=== PATIENT | female | born 1955 | race Caucasian/White ===

== ENCOUNTER 2019-01-10 14:16 | Inpatient (IN) | payer OTHER ==
[~2019-01-10] VITALS: Ht 165.1 cm; Wt 100.0 kg
[2019-01-10] MEDS ORDERED: SODIUM CHLORIDE 0.9% 1L BAG IV* STA (14:29)
--- NOTE | 2019-01-10 15:14 | ERD ---
ER Documentation Chief Complaint Chief Complaint pt was found in back of trailer. aloc. skin is warm to touch HPI This is a 63-year-old female with a past medical history of hypertension, diabetes, COPD who is presenting with fever, cough, shortness of breath and altered mental status. The patient reports several days of feeling generally unwell. She endorses a congested nonproductive cough with increasing shortness of breath. She has chest tightness but denies chest pain or pleuritic pain. The patient has remained in her very hot trailer for several days. The patient was found by paramedics in the trailer very lethargic. The patient was very warm to touch prior to arrival. The patient was found to be febrile and tac hycardic in the emergency department. She is also hypoxic to the high 80s. She is currently alert, but oriented x2. She knows her name and the year, but she thought did not realize that she was in [place]. The patient does not know how she got to this town. She does not endorse any alleviating or exacerbating factors. The patient has had no headache or vision changes. The patient does not endorse neck pain or stiffness. She does not report back pain. The patient denies lightheadedness or dizziness. The patient denies nausea or vomiting. The patient denies abdominal pain. The patient denies changes to bowel movements or urination. The patient has had no focal deficits. The patient has had no weakness or numbness or tingling to the face or extremities. ROS All systems reviewed and are negative except as per history of present illness. Medications Home Meds Reported Medications Cyclobenzaprine Hcl* (Cyclobenzaprine Hcl*) 10 Mg Tablet, 10 MG PO Q8, #60 TAB 01/10/19 Morphine Sulfate* (Ms Contin*) 15 Mg Tablet.sa, 15 MG PO Q12, TAB 01/10/19 Doxepin Hcl* (Doxepin Hcl*) 25 Mg Capsule, 25 MG PO HS, CAP 01/10/19 Allergies Allergies: Coded Allergies: Penicillins (Unverified Allergy, Unknown, 01/10/19) doxycycline (Unverified Allergy, Unknown, 01/10/19) erythromycin base (Unverified Allergy, Unknown, 01/10/19) PMhx/Soc Medical and Surgical Hx: Unable to obtain History of Surgery: Yes (Cholecystectomy, back surgery, stomach surgery) Anesthesia Reaction: No Hx Neurological Disorder: No Hx Respiratory Disorders: Yes (COPD) Hx Cardiac Disorders: Yes (Hypertension, diabetes) Hx Psychiatric Problems: No Hx Miscellaneous Medical Probl: No Hx Alcohol Use: No Hx Substance Use: No Hx Tobacco Use: No FmHx Family History: diabetes Physical Exam Vitals Vital Signs Date Temp Pulse Resp B/P (MAP) Pulse Ox O2 O2 Flow FiO2 Time Delivery Rate 01/10/19 109 18 96 Nasal 4.0 16:21 Cannula 01/10/19 111 16 152/68 96 Nasal 4.0 16:12 (96) Cannula 01/10/19 101.2 15:45 01/10/19 111 18 161/79 98 Nasal 4.0 15:30 (106) Cannula 01/10/19 Nasal 4 14:35 Cannula 01/10/19 101.2 122 20 150/73 88 14:19 (98) Physical Exam Const: No apparent distress, well-developed, well-nourished Head: Normocephalic, Atraumatic Eyes: Normal Conjunctiva. Extraocular movements intact. Pupils equal, round and reactive to light ENT: Normal External Ears, Nose and Mouth. Neck: Full range of motion. No meningismus. Resp: Mild increased work of breathing, hypoxia, diffuse end expiratory w heezes and coarse breath sounds bilaterally. Cardio: Regular rhythm. Tachycardia. No murmurs, rubs or gallops Abd: Soft, non tender, non distended. Normal bowel sounds Skin: No petechiae or rashes. Very warm to touch. Back: No midline tenderness. No CVA tenderness Ext: No cyanosis, or edema Neur: Awake and alert, oriented 2 to person and time. Cranial nerves intact. No facial droop. Normal strength, sensation and coordination. Result Diagram: 01/10/19 1434 01/10/19 1434 Results 24 hrs Laboratory Tests Test 01/10/19 14:30 01/10/19 14:34 01/10/19 15:16 01/10/19 16:47 POC Venous 1.6 mmol/L Lactate White Blood 12.0 10^3/ul Count Red Blood Count 5.11 10^6/ul Hemoglobin 14.9 g/dl Hematocrit 44.4 % Mean Corpuscular 86.9 fl Volume Mean Corpuscular 29.2 pg Hemoglobin Mean Corpuscular 33.6 g/dl Hemoglobin Suzan nt Red Cell 13.3 % Distribution Width Platelet Count 192 10^3/UL Mean Platelet 9.8 fl Volume Immature 0.300 % Granulocytes % Neutrophils % 64.1 % Lymphocytes % 26.7 % Monocytes % 6.9 % Eosinophils % 1.4 % Basophils % 0.6 % Nucleated Red 0.0 /100WBC Blood Cells % Immature 0.030 10^3/ul Granulocytes # Neutrophils # 7.7 10^3/ul Lymphocytes # 3.2 10^3/ul Monocytes # 0.8 10^3/ul Eosinophils # 0.2 10^3/ul Basophils # 0.1 10^3/ul Nucleated Red 0.0 10^3/ul Blood Cells # Prothrombin Time 15.0 Sec Prothrombin Time 1.2 Ratio INR 1.17 International Normalized Ratio Activated 28.5 Sec Partial Thrombop last Time Sodium Level 147 mmol/L Potassium Level 2.9 mmol/L Chloride Level 116 mmol/L Carbon Dioxide 15 mmol/L Level Anion Gap 16 Blood Urea 24 mg/dl Nitrogen Creatinine 3.13 mg/dl Est Glomerular 15 mL/min Filtrat Rate mL/min Glucose Level 142 mg/dl Calcium Level 9.4 mg/dl Total Bilirubin 0.6 mg/dl Direct Bilirubin 0.00 mg/dl Indirect 0.6 mg/dl Bilirubin Aspartate Amino 37 IU/L Transf (AST/SGOT ) Alanine 8 IU/L Aminotransferase (ALT/SGPT) Alkaline 90 IU/L Phosphatase Creatine Kinase 534 IU/L Troponin I < 0.012 ng/ml Total Protein 8.7 g/dl Albumin 4.4 g/dl Globulin 4.30 g/dl Albumin/Globulin 1.02 Ratio Ethyl Alcohol < 10.0 mg/dl Level Blood Gas Blood arterial Specimen Source Arterial Blood 01/10/2019 5:18:4 Date Drawn 8 PM Arterial Blood 7.250 pH (Temp corrected) Arterial Blood 36.4 mmhg pCO2 (Temp correct) Arterial Blood 69.4 mmHG pO2 (Temp corrected) Arterial Blood 15.6 mmol/L HCO3 Arterial Blood -10.7 mmol/L Base Excess Arterial Blood 91.8 mmHG Oxygen Saturatio n Terry Test ACCEPTAB Arterial Blood Left Radial Gas Puncture Site Arterial 0.3 % Blood Carboxyhem oglobin Arterial Blood 0.3 % Methemoglobin Blood Gas A-a O2 36.7 mmHg Differential Oxyhemoglobin 91.2 % Percent Blood Gas 37.0 C Temperature Blood Gas ROOM AIR Modality FiO2 21.0 % Blood Gas DR. SAENZ Critical Value Read Back Blood Gas Raven Notified Whom Blood Gas 01/10/2019 5:41:2 Notified Time 4 PM Lactic Acid 0.9 mmol/L Level Current Medications Medications Dose Sig/Betty Start Time Status Last (Trade) Ordered Route PRN Stop Time Admin Dose Reason Admin Sodium 1,710 ml BOLUS OVER 2 01/10/19 DC 01/10/19 Chloride HOURS STAT 14:29 14:34 (NS) IV* 01/10/19 14:32 Ipratropium 1.5 mg ONCE STAT 01/10/19 DC 01/10/19 [place] INH 15:16 16:20 (Atrovent 01/10/19 15:20 0.02% (Neb)) Albuterol 15 mg ONCE STAT 01/10/19 DC 01/10/19 (Proventil INH 15:16 16:20 0.5% (Neb)) 01/10/19 15:20 125 mg ONCE STAT 01/10/19 DC 01/10/19 Methylprednis IV 15:16 15:32 olone Sodium 01/10/19 15:20 Succinate (Solu-Medrol) Ceftriaxone 50 ml @ ONCE STAT 01/10/19 DC 01/10/19 Sodium 100 mls/hr IVPB 15:16 15:33 01/10/19 15:45 Azithromycin 250 ml @ ONCE STAT 01/10/19 DC 250 mls/hr IV 15:16 01/10/19 16:37 650 mg ONCE ONCE 01/10/19 DC 01/10/19 Acetaminophen PO 15:30 15:45 (Tylenol 01/10/19 15:31 Tab) Ketorolac 15 mg ONCE STAT 01/10/19 DC 01/10/19 Tromethamine IV 15:16 15:32 (Toradol) 01/10/19 15:20 Potassium 50 ml @ 50 Q1H IVPB 01/10/19 01/10/19 Chloride mls/hr 15:30 17:41 01/10/19 18:29 Potassium 40 meq ONCE STAT 01/10/19 DC 01/10/19 Chloride PO 15:16 15:45 (Klor-Con 20) 01/10/19 15:20 Magnesium 50 ml @ 25 ONCE ONCE 01/10/19 DC 01/10/19 Sulfate mls/hr IVPB 15:30 16:09 01/10/19 17:29 150 ml @ ONCE ONCE 01/10/19 01/10/19 Levofloxacin/ 100 mls/hr IVPB 17:00 17:44 Dextrose 01/10/19 18:29 Ondansetron 4 mg ER BRIDGE 01/10/19 HCl (Zofran PRN IV 17:30 Inj) NAUSEA/VOMITI 01/11/19 17:29 NG 650 mg ER BRIDGE 01/10/19 Acetaminophen PRN PO 17:30 (Tylenol .MILD PAIN 01/11/19 17:29 Tab) 1-3 OR TEMP Procedures/MDM MDM The patient's presentation warrants further investigation. Previous medical records, if available, were reviewed. LABS The patient's laboratory testing was obtained and reviewed. No emergent treatment was required unless described below. CBC: Leukocytosis without shift. No E/o anemia or thrombocytopenia Chemistry: Hypokalemia requiring treatment. Elevated BUN and creatinine, concerning for acute renal failure. Anion gap metabolic acidosis evident. No E/o liver disease or diabetic ketoacidosis PT/INR: No E/o significant coagulopathy Lactate: No E/o severe sepsis Troponin: No E/o acute ischemia CK: Elevated, with the potential of mild rhabdomyolysis Urine: Pending Tox: No E/o alcohol abuse. UDS pending ABG: Metabolic acidosis with hypoxemia. EKG EKG read by me: Rate/Rhythm: Sinus tachycardia at 107 bpm Intervals: Normal [place]: Normal Impression: No evidence of acute ischemia. Sinus tachycardia. IMAGING Imaging and Radiology interpretation reviewed. CXR FINDINGS: The cardiomediastinal silhouette demonstrates enlargement of the card iac silhouette. No focal consolidation is seen. No pleural effusion is seen. No definite pneumothorax is seen. No acute osseous abnormality. Cervical spinal hardware noted. IMPRESSION: No radiographic evidence of an acute cardiopulmonary process. Cardiomegaly. Electronically viewed and signed by Carlton Craft Physician on 01/10/2019 15:30 TREATMENT/DISPOSITION The patient presents with fever, tachycardia, hypoxia and mild respiratory distress. The patient does have symptoms concerning for a COPD exacerbation. The patient was treated with nebulized albuterol ipratropium in addition to IV Solu-Medrol and magnesium. The patient does meet criteria for a systemic inflammatory response syndrome, and a sepsis work-up was completed. While I do not see evidence of a focal consolidation, and atypical pneumonia is a possibility. I did opt to treat the patient with Levaquin for the possibility of a pulmonary infection. The patient's lactic acidosis was unremarkable, but there is evidence of acute renal failure. The patient meets criteria for severe sepsis. The patient's ABG does reveal a metabolic acidosis. This will require further assessment in the hospital. Hypoxemia was also evident. This was off any oxygen. The patient was put on oxygen via nasal cannula with significant improvement of her oxygenation. The patient is hypokalemic which will require treatment. I do not feel that this is the etiology of her symptoms today. The patient will require nephrology consultation in the hospital for her renal insufficiency versus renal failure. The patient does have an anion gap metabolic acidosis, which will be managed with IV fluids in the emergency department. Given that the patient's downtime was not entirely known, I did opt to complete a total CK, which was slightly elevated. She is not quite at the level of rhabdomyolysis, but this should be monitored closely given her renal failure. This too was treated with IV fluids in the emergency department. Patient does not have any focal deficits. She is confused, but she is not dysarthric or aphasic. I have very low suspicion for cerebral ischemia. I do not suspect intracranial hemorrhage. I do not feel that advanced imaging is required at this time. SEPSIS NOTE SIRS Criteria: Fever, tachycardia, leukocytosis Infectious source: Pulmonary End organ damage indicated by: Cr > 2.0 SEPSIS MANAGEMENT Time to recognize sepsis: 1429 Time to recognize severe sepsis: 1445 Time to recognize septic shock: No septic shock at this time. 3 HOUR BUNDLE Blood cultures x 2 before abx: Yes 30 ml/kg NS bolus completed Initial lactate 1.6 Repeat lactate 0.9 SEPTIC SHOCK ASSESSMENT: NO lactic acid > 4.0 NO persistent hypotension (SBP < 90 or 40 mmHg drop, MAP < 65) despite 30 L/kg IV fluid bolus CRITICAL CARE Critical care time 35 minutes Emergent fluid management while maintaining close respiratory support. Provision of immediate and broad-spectrum antibiotic therapy. Simultaneous assessment for possible sources in order to direct targeted therapy. Consideration for invasive and chemical support to prevent cardiopulmonary collapse. Critical care time is independent of procedures performed. ADMISSION The patient will be admitted to [facility] in accordance with the patient's i nsurance. The patient was accepted by Dr. Casas to telemetry. Disclaimer: Inadvertent spelling and grammatical errors are likely due to EHR/dictation software use and do not reflect on the overall quality of patient care. Note that the electronic time recorded on this note does not necessarily reflect the actual time of the patient encounter. Departure Diagnosis: Primary Impression: Severe sepsis Additional Impressions: COPD exacerbation Fever Fever type: unspecified Qualified Codes: R50.9 - Fever, unspecified Tachycardia Leukocytosis Leukocytosis type: unspecified Qualified Codes: D72.829 - Elevated white blood cell count, unspecified Hypoxia Metabolic acidosis Hypokalemia Acute renal failure Acute renal failure type: unspecified Qualified Codes: N17.9 - Acute kidney failure, unspecified Elevated CK Altered mental status Altered mental status type: disorientation Qualified Codes: R41.0 - Disorientation, unspecified Condition: Serious EDA SAENZ MD Jan 10, 2019 15:14
[2019-01-10] MEDS ORDERED: AZITHROMYCIN 500MG/NS (PMX) 250 ML IV STA (15:16)
[2019-01-10] MEDS ORDERED: IPRATROPIUM (NEB) 0.5 MG/2.5 ML AMP INH STA (15:16)
[2019-01-10] MEDS ORDERED: METHYLPREDNISOLONE 125 MG INJ IV STA (15:16)
[2019-01-10] MEDS ORDERED: KETOROLAC 15 MG INJ IV STA (15:16)
[2019-01-10] MEDS ORDERED: CEFTRIAXONE 1 GM/50 ML (PMX) 50 ML IVPB STA (15:16)
[2019-01-10] MEDS ORDERED: ALBUTEROL 0.5% (NEB) 2.5 MG/0.5 ML AMP INH STA (15:16)
[2019-01-10] MEDS ORDERED: MAGNESIUM SULFATE 2 GM/50 ML 50 ML IVPB ONE (15:30)
[2019-01-10] MEDS: POTASSIUM CHLORIDE 50 ML IVPB SCH ×3 (15:30→19:39)
[2019-01-10] MEDS: ACETAMINOPHEN 325 MG TAB PO ONE ×3 (15:32→15:45)
[2019-01-10] MEDS: POTASSIUM CHLORIDE (SR) 20 MEQ TAB PO STA ×3 (15:33→15:45)
[2019-01-10] MEDS ORDERED: DOXE25CA2 PO (15:57)
[2019-01-10] MEDS ORDERED: MORP15TA92 PO (15:57)
[2019-01-10] MEDS ORDERED: CYCL10TA7 PO (15:58)
[2019-01-10] MEDS ORDERED: LEVOFLOXACIN 750MG/D5W (PMX) 150 ML IVPB ONE (17:00)
[2019-01-10] MEDS ORDERED: ACETAMINOPHEN 325 MG TAB PO PRN (17:30)
[2019-01-10] MEDS ORDERED: ONDANSETRON 4 MG INJ IV PRN (17:30)
[2019-01-10 19:00] VITALS: BP 129/84; PULSE 104; RESP 17
[2019-01-10 20:00] VITALS: Ht 165.1 cm; Wt 100.0 kg
[2019-01-10] MEDS ORDERED: morphine (ER) 15 MG TAB PO PRN ×2 (22:00→22:30)
[2019-01-10] MEDS ORDERED: DEXTROSE 50% 50 ML SYRINGE IV PRN ×2 (22:30)
[2019-01-10] MEDS ORDERED: VERAPAMIL (SR) 240 MG TAB PO SCH (22:30)
[2019-01-10] MEDS ORDERED: GLUCOSE GEL 15 GRAM TUBE PO PRN ×2 (22:30)
[2019-01-10] MEDS ORDERED: GLUCAGON 1 MG INJ IM PRN (22:30)
[2019-01-10] MEDS ORDERED: GLUCOSE GEL 15 GRAM TUBE BUCCAL PRN (22:30)
[2019-01-10] MEDS: CYCLOBENZAPRINE 10 MG TAB PO SCH (22:33)
[2019-01-10] MEDS: LORAZEPAM 0.5 MG TAB PO SCH (23:12)
[2019-01-10] MEDS: VERAPAMIL (SR) 120 MG TAB PO SCH (23:13)
[2019-01-11] MEDS: NS + KCL 20 MEQ 1,000 ML IV SCH ×2 (00:17→11:28)
[2019-01-11 00:19] VITALS: BP 126/79; PULSE 98; RESP 17
[2019-01-11] MEDS: ALBUTEROL/IPRATROPIUM (NEB) 3 ML AMP HHN SCH ×6 (01:35→20:14)
[2019-01-11 04:06] VITALS: BP 142/65; PULSE 89; RESP 17
[2019-01-11] MEDS: CYCLOBENZAPRINE 10 MG TAB PO SCH ×3 (05:18→21:59)
[2019-01-11 07:14] VITALS: BP 124/60; PULSE 86; RESP 20
[2019-01-11] MEDS: ACCU-CHEK XX SCH ×5 (07:25→21:02)
[2019-01-11] MEDS ORDERED: metFORMIN 500 MG TAB PO SCH (07:55)
[2019-01-11] MEDS: FUROSEMIDE 20 MG TAB PO SCH (08:59)
[2019-01-11] MEDS ORDERED: METHYLPREDNISOLONE 40 MG INJ IV ONE (09:00)
[2019-01-11] MEDS: METOPROLOL 100 MG TAB PO SCH (09:00)
[2019-01-11] MEDS: POTASSIUM CHLORIDE (SR) 20 MEQ TAB PO SCH (09:00)
[2019-01-11] MEDS ORDERED: LEVOFLOXACIN 500MG/D5W (PMX) 100 ML IVPB SCH ×2 (09:00→17:00)
[2019-01-11] MEDS ORDERED: glyBURIDE 2.5 MG TAB PO ONE (09:00)
[2019-01-11] MEDS: VERAPAMIL (SR) 120 MG TAB PO SCH ×2 (09:01→20:55)
[2019-01-11 11:52] VITALS: BP 118/66; PULSE 79; RESP 19
[2019-01-11] MEDS ORDERED: LEVO500T48 PO (12:47)
[2019-01-11] MEDS ORDERED: VER120SR PO (12:47)
[2019-01-11] MEDS ORDERED: METO-407 PO (12:47)
[2019-01-11] MEDS ORDERED: METF-849 PO (12:47)
--- NOTE | 2019-01-11 12:48 | PDOCDIS ---
Discharge Instructions CONDITION [id number] Patient Condition: [id number] Good HOME CARE INSTRUCTIONS: [id number] Diet Instructions: [id number] Activity Restrictions: [id number] No Restrictions FOLLOW UP/APPOINTMENTS Follow-up Plan pcp 1 week JORDIN CORMIER MD Jan 11, 2019 12:48
--- NOTE | 2019-01-11 14:07 | HP ---
DATE OF ADMISSION: 01/10/2019 CHIEF COMPLAINT: Shortness of breath. HISTORY OF PRESENT ILLNESS: A 63-year-old female with history of hypertension, type 2 diabetes macy hollis, chronic pain syndrome, and narcotic dependence, was brought in after [facility] was [facility] with altered mentation. The patient reports not feeling well for several days. She has cline d shortness of breath and dyspnea on exertion. She denies cough or chest pain. No fever, chills, na usea, or vomiting. The patient was quite lethargic at the time of presentation and I suspect that th is was due to narcotics. Initial evaluation was fairly unremarkable. PHYSICAL EXAMINATION: VITAL SIGNS: Stable. She was afebrile. IMAGING: Chest x-ray did not show any infiltrates. LABORATORY DATA: Showed a white blood cell count of 12,000. Basic metabolic panel was within normal limits. PAST MEDICAL HISTORY: 1. Chronic pain syndrome. 2. Narcotic dependence. 3. Moderate obesity. MEDICATIONS PRIOR TO ADMISSION: 1. Cyclobenzaprine 10 mg q. 8 hours as needed. 2. MS Contin 30 mg b.i.d. 3. MSIR 15 mg b.i.d. 3. Doxepin 25 mg at bedtime. SOCIAL HISTORY: Patient lives in a trailer. She denies tobacco or alcohol use. PHYSICAL EXAMINATION: GENERAL: Well-developed, well-nourished, obese female who is in no apparent distress. VITAL SIGNS: Stable. She is afebrile. HEENT: Extraocular muscles intact. Pupils are equal and reactive to light bilaterally. Sclerae are anicteric. Oropharynx is clear and moist. NECK: Supple, no JVD, no carotid bruits. LUNGS: Mild bilateral rhonchi. CARDIAC: Regular rate and rhythm. No murmurs or gallops. ABDOMEN: Soft, obese, nontender, nondistended, normoactive bowel sounds. EXTREMITIES: No clubbing, cyanosis, or edema. NEUROLOGICAL: Grossly nonfocal. ASSESSMENT: 1. A 63-year-old female with altered mental status, most likely due to narcotics. 2. Chronic pain syndrome. 3. Narcotic dependence. 4. Status post multiple back surgeries. 5. Moderate obesity. 6. Type 2 diabetes mellitus, diet controlled. PLAN: 1. Place in tele observation. 2. Resume home medications. 3. Empiric IV antibiotics. 4. IV Solu-Medrol. 5. Check saturation on room air. DISCHARGE PLANNING: If respiratory status is stable. Dictated By: JORDIN HALE/JOSY Conf#: [id number] DID#: [id number]
[2019-01-11] MEDS ORDERED: FUROSEMIDE 40 MG INJ IV ONE (14:30)
[2019-01-11 15:20] VITALS: BP 125/60; PULSE 77; RESP 20
[2019-01-11] MEDS ORDERED: morphine (ER) 30 MG TAB PO ONE (17:30)
[2019-01-11 19:43] VITALS: BP 128/62; PULSE 80; RESP 17
[2019-01-11] MEDS ORDERED: TOPIRAMATE 100 MG TAB PO ONE (21:00)
[2019-01-11] MEDS ORDERED: DOXEPIN 25 MG CAP PO SCH (21:00)
[2019-01-11] MEDS: morphine (ER) 30 MG TAB PO SCH (21:00)
[2019-01-11] MEDS: LORAZEPAM 0.5 MG TAB PO SCH (21:02)
[2019-01-12] VITALS: BP 125/68; PULSE 82; RESP 17
[2019-01-12] MEDS: ALBUTEROL/IPRATROPIUM (NEB) 3 ML AMP HHN SCH ×3 (00:03→09:50)
[2019-01-12] MEDS: NS + KCL 20 MEQ 1,000 ML IV SCH (00:40)
[2019-01-12 04:42] VITALS: BP 120/59; PULSE 65; RESP 17
[2019-01-12] MEDS: CYCLOBENZAPRINE 10 MG TAB PO SCH (05:42)
[2019-01-12 07:24] VITALS: BP 129/61; PULSE 80; RESP 20
[2019-01-12] MEDS: ACCU-CHEK XX SCH ×2 (07:55→11:20)
[2019-01-12] MEDS ORDERED: metFORMIN 500 MG TAB PO SCH (07:55)
[2019-01-12] MEDS: POTASSIUM CHLORIDE (SR) 20 MEQ TAB PO SCH (08:55)
[2019-01-12] MEDS: VERAPAMIL (SR) 120 MG TAB PO SCH (08:55)
[2019-01-12] MEDS: METOPROLOL 100 MG TAB PO SCH (08:55)
[2019-01-12] MEDS: FUROSEMIDE 20 MG TAB PO SCH (08:56)
[2019-01-12] MEDS: morphine (ER) 30 MG TAB PO SCH (09:08)
[2019-01-12 11:10] VITALS: BP 116/62; PULSE 70; RESP 20
--- NOTE | 2019-01-12 11:44 | DS ---
DATE OF ADMISSION: 01/10/2019 DATE OF DISCHARGE: DISCHARGE DIAGNOSES: 1. A 63-year-old female with acute diastolic congestive heart failure exacerbation, resolved. 2. Hypertension, well controlled. 3. Altered mental status, resolved. 4. Chronic pain syndrome. 5. Narcotic dependence. 6. Status post multiple back surgeries. 7. Moderate obesity. 8. Type 2 diabetes mellitus, diet controlled. HOSPITAL COURSE: A 63-year-old female with history of hypertension, chronic congestive heart failure , and type 2 diabetes mellitus, was brought in after she was found in her trailer with altered mental status. This was most likely due to narcotics. The patient had been on MS Contin and MSIR for caroline ral years. Initial evaluation revealed acute CHF exacerbation and associated hypoxia. The patient r eceived IV Lasix and antihypertensives were resumed. Her physical exam is now unremarkable. She is in stable condition for discharge. I strongly encoura ged her to try to decrease narcotics and remain compliant with medical therapy, especially antihypert ensives. She is in a stable condition for discharge. There was initial leukocytosis with no evidenc e of infection. I am prescribing 5 days of Levaquin. MEDICATIONS ON DISCHARGE: 1. Levaquin 500 mg p.o. daily x5 days. 2. Metformin 1000 mg p.o. b.i.d. 3. Lopressor 100 mg p.o. daily. 4. Verapamil 240 mg p.o. b.i.d. 5. Cyclobenzaprine 10 mg every 8 hours as needed. 6. Doxepin 25 mg p.o. at bedtime. 7. MS Contin 15 mg every 12 hours. DISCHARGE FOLLOWUP: 1. Follow up with PCP in 1 week. 2. Follow up with pain specialist with an attempt to wean off narcotics. Dictated By: JORDIN HALE/JOSY Conf#: [id number] DID#: [id number]
== END 2019-01-12 14:32 | disposition home health service (06) | DRG 70 ==
LOC: E/R 14:16 → TEL 17:02 → OBSVTOIN 21:43
PROVIDERS: ADMIT Internal Medicine; ATTEND Internal Medicine
DX: G93.41 Metabolic encephalopathy (principal); I50.31 Acute diastolic (congestive) heart failure; F19.20 Other psychoactive substance dependence, uncomplicated; I11.0 Hypertensive heart disease with heart failure; T50.905A Adverse effect of unspecified drugs, medicaments and biological substances, initial encounter; J44.9 Chronic obstructive pulmonary disease, unspecified; E87.6 Hypokalemia; G89.4 Chronic pain syndrome; R09.02 Hypoxemia; E11.9 Type 2 diabetes mellitus without complications; E66.9 Obesity, unspecified; Z68.36 Body mass index [BMI] 36.0-36.9, adult; Z79.4 Long term (current) use of insulin; Z90.49 Acquired absence of other specified parts of digestive tract
CPT/HCPCS: 36415; 36600; 71045; 80053; 80307; 82550; 82803; 82962; 83605; 84484; 85025; 85610; 85730; 93005; 94640; 94644; 94664; 96365; 96367; 96375; 99217; G0378; J0456; J0696; J1885; J1940; J1956; J2920; J2930; J3475; J3480; J7030